=== PATIENT | male | born 1960 | race Caucasian/White ===

== ENCOUNTER 2018-10-07 05:40 | Observation (INO) | payer OTHER ==
--- NOTE | 2018-10-01 16:41 | NUR ---
PATIENT HERE TODAY FOR PREADMISSION APPOINTMENT. HE IS SCHEDULED ON 10/07/18 TO HAVE A LEFT TOTAL KNEE ARTHROPLASTY. 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 HE HAS 5 STEPS INTO THE HOME AND NO STEPS ON THE MAIN PORTION OF THE HOME. HE DOES HAVE A BASEMENT BUT WILL NOT NEED TO BE DOWN THERE FOR A WHILE. [place] AND WOULD LIKE PHYSICAL THERAPY DONE AT [facility]. HE HAS BEEN IN CONTACT WITH THEM RECENTLY. HE WILL BE DRIVING HIMSELF HERE ON DAY OF PROCEDURE BUT HIS OR SON WILL TRANSPORT HIM HOME ON DISCHARGE.
[~2018-10-07] VITALS: Ht 185.4 cm; Wt 122.5 kg
[~2018-10-07 05:40] MED LIST: AMBIEN5 MG PO; CHANTIX1 MG PO; FENOFIBRATE145 MG PO; HYDROCODON-ACE1 EA11 PO; OMEPRAZOLE20 MG PO; OXYCODONE HCL5 MG PO; SLEEP AID50 MG PO; TESTOSTERO200 MG/1 M IM
--- NOTE | 2018-10-07 09:22 | NUR ---
MECHELLE CHOUDHURY REQUESTED I NOT DISTURB PT AT THIS TIME. WILL FOLLOW NEEDED
--- NOTE | 2018-10-07 10:29 | NUR ---
10/07/18 Fabiola9 Diann Gauthier 1008- PT ARRIVES TO PACU NONAROUSABLE TO NOXIOUS STIMULI. PT HAS AN OPA IN PLACE. OXYGEN SAT HIGH 90'S ON 6L VIA MASK. RESP EVEN AND UNLABORED. 1011- PT IS MORE AROUSABLE TO PUSHING THE OPA OUT WITH HIS TONGUE. OPA REMOVED. PT FALLS INSTANTLY BACK TO SLEEP AND STARTS SNORING. JAW THRUST PERFORMED AND SNORING CLEARED. MECHELLE BARON COMPLETING JAW THRUST. 1015- JAW THRUST STOPPED AND PT'S HEAD REPOSITIONED TO CLEAR SNORING WHEN SLEEPING.
--- NOTE | 2018-10-07 11:36 | OR ---
[facility] [address], [place] [address] Signed DATE OF OPERATION: 10/07/2018 SURGEON: Tigre Erickson MD PREOPERATIVE DIAGNOSIS: Degenerative joint disease, left knee. POSTOPERATIVE DIAGNOSIS: Degenerative joint disease, left knee. PROCEDURE PERFORMED: Left total knee arthroplasty with computer navigation. DIAMOND MOUNTER: MELA Tna. Altagracia was present and critical for positioning, retraction, wound closure, and dressing application. ANESTHESIA: Spinal with adductor canal block. TOURNIQUET TIME: 85 minutes. IMPLANTS: [place] Triathlon size 8, femur 7, tibia 11 mm insert, and a 38 mm patella. BRIEF HISTORY: Jigar is a 57-year-old gentleman with severe osteoarthritis and had about a 10-degree of flexion and contracture. Risks and benefits of operative treatment were discussed with him and he elected to proceed. DESCRIPTION OF PROCEDURE: Once consent was obtained, he was taken to the operating room. After adequate anesthesia, he was placed on operating room table. All downside pressure points well padded. The leg was placed in well-padded proximal thigh tourniquet and placed on a hip bump. Leg was prepped and draped in the standard sterile fashion and exsanguinated using Esmarch bandage. Tourniquet inflated 250 mmHg. Standard anterior approach was taken through skin and subcutaneous tissue. Median parapatellar arthrotomy was performed. The infrapatellar fat pad was excised and the medial capsule and very anterior fibers of the MCL were elevated around the posteromedial corner. The ACL was Electronically Signed By: TIGRE ERICKSON MD 10/07/18 1136 PATIENT NAME: JIGAR HDZ OPERATIVE REPORT DATE OF : 58 REPORT #: [id number] PHYSICIAN: TIGRE ERICKSON MD PCP: Sen Ordonez DO REPORT IS CONFIDENTIAL AND NOT TO BE RELEASED WITHOUT AUTHORIZATION [facility] [address], [place] [address] Signed transected. The PCL was left intact and was fine. The medial and lateral menisci were transected anteriorly. The knee was then flexed. The knee was quite tight anteriorly, so we put him back into extension and went ahead and cut the patella with the reciprocating saw. This allowed better mobilization laterally. The knee was then flexed and the navigation guide was pinned to the distal femur and the femur was registered with the computer. The cutting block was then pinned in neutral alignment and the distal femoral cut was made with care taken to protect the surrounding tissues. The bone remnants were excised as were the osteophytes. Attention was then turned to the [id number] cutting block. The femur was sized to an 8. The 8 cutting block was pinned in line with the epicondylar axis. The anterior, posterior, and chamfer cuts were made. Again, all bone piece was removed. There were extensive posterior osteophytes on both the femur and the tibia. The navigation guide was then pinned to the top of the tibia and the tibia was registered with the computer. The cutting block was again pinned in anatomic alignment and set to take 4 mm off the medial side. The cut was made with care taken to protect the patellar tendon and the MCL. The bone was excised as were posterior osteophytes off the tibia. The posterior osteophytes off the femur removed. An extensive soft tissue release was done and quite a bit of bone was removed posteriorly on both the medial and lateral sides. Once this was accomplished, flexion and extension gaps were sized found to be symmetric at 11 mm. The trials were positioned. Knee was taken through range of motion. He reached full extension and 125 degrees of flexion. The patella was sized and drilled for a 38 mm patella. Once this was completed, the distal femoral drill holes were made. The keel punch was used to finish the tibia. The trial was removed. The bone surfaces were packed with a dry Ray-Ron and pulse lavaged. The cement was mixed and reached to proper consistency. We placed all implants on bone surfaces. Tibia was impacted into position first followed by the polyethylene and all excess cement was removed. The femur was impacted into position next and again any excess was removed. The knee was extended and nicely loaded. The patella was clamped into position, any remaining overflow was removed. The cement was allowed to harden for 13 minutes and then the knee was flexed and the remaining overflow was removed using osteotomes. The knee was pulse lavaged at intervals throughout the procedure. A total of 3 L antibiotic irrigation was used. At the end of the procedure, we percutaneously placed an On-Q pain pump in the adductor canal from inside the knee. The synovium superomedially was dissected and digital dissection was taken into the adductor canal. The catheter was introduced using a blunt pituitary rongeur. Once this was accomplished, the knee was closed using #2 Stratafix and #0 Stratafix. The skin was closed using Super Glue mesh. Stressed with a REID wound VAC dressing and taken to recovery room. All sponge, needle, and instrument counts were correct. Electronically Signed By: TIGRE ERICKSON MD 10/07/18 1136 PATIENT NAME: JIGAR HDZ OPERATIVE REPORT DATE OF : 58 REPORT #: [id number] PHYSICIAN: TIGRE ERICKSON MD PCP: Sen Ordonez DO REPORT IS CONFIDENTIAL AND NOT TO BE RELEASED WITHOUT AUTHORIZATION [address] [place], [place] [address] Signed Tigre Erickson MD BA/BYRONL /[id number] Copies: ~ Electronically Signed By: TIGRE ERICKSON MD 10/07/18 1136 PATIENT NAME: JIGAR HDZ OPERATIVE REPORT DATE OF : 58 REPORT #: [id number] PHYSICIAN: TIGRE ERICKSON MD PCP: Sen Ordonez DO REPORT IS CONFIDENTIAL AND NOT TO BE RELEASED WITHOUT AUTHORIZATION
--- NOTE | 2018-10-07 12:53 | NUR ---
PT VERY DROWSY, SLEEPING UPON THIS RN ENTERING ROOM. AWOKE TO VOICE AND GENTLE TOUCH. PT STATING HE WAS HAVING A STRANGE DREAM. VS OBTAINED. PT HARSH CLEAR LIQUID TRAY. DENIES PAIN OR OTHER CONCERNS. LEFT KNEE DRESSING REMAINS CDI. CALL LIGHT WITHIN REACH.
--- NOTE | 2018-10-07 13:39 | NUR ---
ASSISTED RN ZA SHE PUSHED PT TO M/S RM FROM PACU. PT WAS AWAKE, SEEMINGLY IN GOOD SPIRITS. CHECKED BY JUST A FEW MOMENTS LATER, AND PT WAS ASLEEP. WILL CONTINUE TO FOLLOW
--- NOTE | 2018-10-07 16:48 | NUR ---
PT STATES HE IS PICKING UP A WALKER FROM [facility]ON DC FROM HERE AND WANTS TO DO HIS THERAPY AT [facility] IN [place].
--- NOTE | 2018-10-07 17:12 | NUR ---
Medications reconciled by pharmacist using pharmacy records and patient interview
--- NOTE | 2018-10-07 19:11 | NUR ---
RECEIVED REPORT FROM MECHELLE CHINCHILLA. pt RESTING WITH EYES CLOSED, RESPIRATIONS REGULAR. WHITEBOARD UPDATED. CRYOCUFF ON. SCDS AND TYREE HOSE ON. CALL LIGHT WITHIN REACH.
--- NOTE | 2018-10-07 20:37 | NUR ---
ROUNDED CHARGE. VITALS TAKEN AND RECORDED. CRYO REFILLED WITH ICE. CHRISTINE RN IN ROOM. PATIENT HAS NOT VOIDED IN THE LAST 4 HOURS. EDUCATED PATIENT ON THE NEED TO DRINK AND VOID BY 10 PM AND THE WE WOULD BLADDER SCAN HIM. PATIENT VERBALIZED UNDERSTANDING. PATIENT DENIES ANY COMMENTS, QUESTIONS OR CONCERNS. NO NEEDS NOTED. CALL LIGHTIN REACH.
--- NOTE | 2018-10-07 20:48 | NUR ---
ASSESSMENT AND MEDICATIONS DUE. pt RESTING WITH EYES CLOSED, EASILY ROUSED. REPORTED 1/10 PAIN WHEN RESTING. REID HAS GREEN LIGHT, DRESSING C/D/I, NO SHADOWING. PATO WRAP. CRYOCUFF REFRESHED. TYREE FLORES, SCDS, AND HEEL PROTECTORS ON. ASSESSMENT DONE. MEDICATIONS GIVEN (SEE MAR). CALL LIGHT AND POSSESSIONS WITHIN REACH. NO FURTHER REQUESTS AT THIS TIME.
--- NOTE | 2018-10-07 21:55 | NUR ---
THIS RN PROVIDED PATIENT FRESH ICE WATER PER PATIENT REQUEST. ASSISTED PATIENT TO RESTROOM 1PA WITH FWW AND AMBULATED X1 LAP IN HALLWAY, PATIENT TOLERATED WELL. PATIENT SAFELY BACK IN BED WITH TYREE HOSE, HEEL PROTECTORS ON, SCDs IN PLACE AND ON, CRYOCUFF IN PLACE, AND CPOX. PRIMARY NURSE IN ROOM WITH PATIENT. CALL LIGHT WITHIN REACH. NO MORE NEEDS AT THIS TIME.
--- NOTE | 2018-10-07 22:47 | NUR ---
CALL LIGHT ON. pt REQUESTED PAIN MEDICATION FOR 4/10 PAIN. PRN MEDICATION GIVEN. PUDDING AND JELLO PROVIDED. WATER REFRESHED. CALL LIGHT WITHIN REACH.
--- NOTE | 2018-10-07 23:36 | NUR ---
REFILLED PATIENTS ICE WATER PER REQUEST. PATIENT IS RESING IN BED WATCHING TV. PATIENT DENIES ANY FUTHER NEEDS. CALL LIGHT IN REACH.
--- NOTE | 2018-10-08 00:15 | NUR ---
MEDICATION GIVEN (SEE MAR). pt AWAKE IN BED WATCHING. TV. CRYOCUFF, TYREE HOSE, SCDS, AND HEEL PROTECTORS ON. CALL LIGHT WITHIN REACH.
--- NOTE | 2018-10-08 00:44 | NUR ---
CALL LIGHT ON. ASSISTED TO TOILET, 1PA, FWW. REFRESHED WATER. IN BED WITH CRYOCUFF, SCDS, TYREE HOSE, AND HEEL PROTECTORS. REID C/D/I. CALL LIGHT WITHIN REACH.
--- NOTE | 2018-10-08 02:10 | NUR ---
VITALS TAKEN AND RECORDED. INTAKE AND OUPUT RECORDED. CRYO REFILLED WITH ICE. CHRISTINE MIN IN ROOM.
--- NOTE | 2018-10-08 02:11 | NUR ---
FOUND pt RESTING ON HIS SIDE. WHEN AROUSED pt IMMEDIATELY CORRECTED POSITION AND VERBALIZED UNDERSTANDING HE NEEDS TO SLEEP ON HIS BACK. EDUCATED ON POSITION REQUIREMENTS. ASSESSMENT DONE. REID DRESSING C/D/I. CRYOCUFF REFRESHED AND IN PLACE. TYREE FLORES, DORONS, HEEL PROTECTORS ON. CALL LIGHT WITHIN REACH. NO REQUESTS AT THIS TIME.
--- NOTE | 2018-10-08 02:55 | NUR ---
ROUNDED ON pt. RESTING WITH EYES CLOSED, RESPIRATIONS REGULAR, RATE = 16. ON BACK. CALL LIGHT WITHIN REACH.
--- NOTE | 2018-10-08 03:51 | NUR ---
CALL LIGHT ON. ASSISTED TO TOILET AND BACK TO BED. CRYOCUFF, SCDS, TYREE HOSE, HEEL PROTECTORS ON. CALL LIGHT WITHIN REACH. LAYING ON BACK.
--- NOTE | 2018-10-08 04:35 | NUR ---
CALL LIGHT ON. pt REPORTING 4/10 PAIN AT REST. PRN MEDICATION GIVEN (SEE MAR). WATER REFRESHED. CALL LIGHT WITHIN REACH.
--- NOTE | 2018-10-08 05:41 | NUR ---
pt RESTED ON AND OFF DURING SHIFT. REQUIRED PRN PAIN MEDS X2. VOIDING QS. AMBULATED AROUND [place] X1, 1PA, FWW. IV SL, IV ABX. TOLERATING REGULAR DIET. CMS INTACT. ROOM AIR, CPOX. REID DRESSING, NO DRAINAGE NOTED, OKAY LIGHT BLINKING, C/D/I. ON-Q PUMP. CRYOCUFF, TYREE HOSE, SCDS, AND HEEL PROTECTORS ON. USES CALL LIGHT APPROPRIATELY.
--- NOTE | 2018-10-08 05:59 | NUR ---
VITLAS SIGNS TAKEN AND RECORDED. INTAKE AND OUPUT RECORDED. CRYO REFILLED WITH ICE. CHRISTINE MIN IN ROOM.
--- NOTE | 2018-10-08 06:09 | NUR ---
ASSESSMENT AND MEDICATION DUE. ASSESSMENT DONE. pt AWAKE WATCHING TV. DRAINAGE THE SIZE OF A QUARTER NOTED ON REID DRESSING, C/D/I. ON-Q IN PLACE. PATO WRAP, CRYOCUFF, TYREE HOSE, SCDS, AND HEEL PROTECTORS IN PLACE. VSS. MEDICATION GIVEN (SEE MAR). WATER REFRESHED, APPLESAUCE PROVIDED. CALL LIGHT WITHIN REACH.
[2018-10-08] MEDS ORDERED: SENNA LAX8.6 MG PO (07:55)
[2018-10-08] MEDS ORDERED: XARELTO10 MG PO (07:55)
[2018-10-08] MEDS ORDERED: GABAPENTIN600 MG PO (07:55)
[2018-10-08] MEDS ORDERED: OXYCODONE HCL5 MG PO (07:55)
[2018-10-08] MEDS ORDERED: MAPAP500 M1 PO (07:55)
[2018-10-08] MEDS ORDERED: MIRALAX17 GM PO (07:55)
--- NOTE | 2018-10-08 08:11 | NUR ---
PT SITTING UPRIGHT IN BED EATING BREAKFAST. PT DENIES PAIN WHEN SITTING STILL, MOVEMENT MAYBE A 5\10. DRESSING INTACT. GREEN LIGHT ON REID. PT ASSISTED TO BATHROOM FOR BM.
--- NOTE | 2018-10-08 08:50 | NUR ---
ADMINISTERED OXY FOR INFORMATION TECHNOLOGY PROFESSOR AND AB PER SCHEDULE. PT TOLERATED WELL AND IS LOOKING FORWARD TO GOING HOME.
--- NOTE | 2018-10-08 09:56 | NUR ---
PT WORKED WITH TUBE LASER OPERATOR AND UPON RETURNING TO ROOM NOTICED AN INCREASED AMOUNT OF BLOODY DRAINAGE ON REID DRESSING. STILL WITHIN THE CONFINES OF THE ABSORBANT PAD. PT RATES PAIN 4\10 AND WAS DECENT WHEN DOING THERAPY. FARHAN STATES THAT HE DID QUITE WELL AND SHE WILL WORK WITH HIM AGAIN AT 1300. WILL CONTINUE TO MONITOR
--- NOTE | 2018-10-08 11:10 | NUR ---
PT WAS IN BED, WATCHING TV. HE IS ALERT AND ORIENTED. PT HOPES TO BE DC'D LATER TODAY AFTER PM P.T. PAIN UNDER CONTROL, HAS P.T. SET UP IN [place]. HAD PLEASANT VISIT, EXTENDED A BLESSING, WILL FOLLOW NEEDED
--- NOTE | 2018-10-08 11:17 | NUR ---
CALLED DR WESTFALL TO INFORM OF INCREASING DRAINAGE AND PT HAVING THROBBING IN KNEE. HE SAID TO TURN THE ON-Q PUMP FROM 8 UP TO 10 AND CONTINUE TO MONITOR THE BLEEDING. PT INFORMED OF THIS AND PUMP TURNED UP. STATES HE WOULD LIKE THE OXY BEFORE AUTOMATIC PACKER OPERATOR THIS AFTERNOON.
--- NOTE | 2018-10-08 13:05 | NUR ---
PT SITTING IN BED WAITING FOR RESIDENTIAL MONITOR. TOLD PT NOT TO BED THE KNEE MUCH IN THERAPY THIS AFTERNOON. ALSO TOLD FARHAN PT. DRAINAGE IS NOW LEAKED SLIGHTLY OFF OF ABSORBANT PAD BUT THE SEAL ON DRESSING STILL INTACT.
--- NOTE | 2018-10-08 14:40 | NUR ---
PATIENT SITTING UP IN BED EATING AND WATCHING TV. FRESH WATER GIVEN. CALL LIGHT IN REACH. NO FURTHER NEEDS AT THIS TIME.
--- NOTE | 2018-10-08 14:43 | NUR ---
PT WORKED WITH COLD WORKING SUPERVISOR FOR SECOND TIME. PT HAD INCREASED DRAINAGE BUT FEELS PAIN IS ADEQUETLY CONTROLLED. CALLED MALOU. HE SAID TO CHANGE THE REID DRESSING TO THE SPARE AND REINFORCE ON TOP WITH ABD THEN PATO WRAP. FOLLOW UP WITH MALOU ON SUNDAY FOR DRESSING CHANGE. CHANGED THE DRESSING WNL. HAS A BRUISE FORMING AT BASE OF INCISION AND IS LEAKING FROM THAT SPOT. IMMEDIATELY SATURATED BOTTOM OF NEW DRESSING BUT HAS NOT SPREAD SINCE PLACED 1\2 HOUR AGO. ADMINISTERED SCHEDULED PAIN MEDS. PT CALLED FAMILY TO COME GET HIM. DR WESTFALL OK'D GOING HOME
--- NOTE | 2018-10-08 15:58 | NUR ---
PROVIDED PATIENT WITH DISCHARGE INSTRUCTIONS, DISCUSSED HOME CARE. IV REMOVED, CATH INTACT. NOTED REID DRSG BLOODY, ABD REINFORCING W/ PATO WRAP CLEAN, DRY AND INTACT. PATIENT VERBALIZED UNDERSTANDING OF CONCERNS OF BLEEDING, AND WILL LIMIT ACTIVITY AT HOME, BY NOT BENDING >30 DEGREES. STRONG PEDAL PULSE. PLAN FOR PATIENT TO HAVE DRSG CHANGED ON SUNDAY MORNING AT DR. WESTFALL OFFICE.
== END 2018-10-08 16:37 | disposition home or self-care (01) ==
LOC: MS 05:40 → DSVR 05:40 → DS 05:40 → DSVR 05:40 → EDSTATUS 06:45 → MS 06:45 → DS 08:17 → MS 08:18 → DSVR 11:05 → MS 11:05
PROVIDERS: ADMIT Specialist
PROC: 8E0YXBZ Computer Assisted Procedure of Lower Extremity (ICD-10-PCS; 2018-10-07)
PROC: 3E0T3BZ Introduction of Anesthetic Agent into Peripheral Nerves and Plexi, Percutaneous Approach (ICD-10-PCS; 2018-10-07)
PROC: 0SRD0J9 Replacement of Left Knee Joint with Synthetic Substitute, Cemented, Open Approach (ICD-10-PCS; principal; 2018-10-07 06:45)
DX: M17.12 Unilateral primary osteoarthritis, left knee (principal); G89.18 Other acute postprocedural pain; F17.200 Nicotine dependence, unspecified, uncomplicated; K21.9 Gastro-esophageal reflux disease without esophagitis; E66.01 Morbid (severe) obesity due to excess calories; G47.33 Obstructive sleep apnea (adult) (pediatric); Z79.899 Other long term (current) drug therapy; Z96.651 Presence of right artificial knee joint; Z68.35 Body mass index [BMI] 35.0-35.9, adult
CPT/HCPCS: 01402; 36415; 64447; 76942; 80048; 85025; 94762; 96374; 96375; 96376; 97110; 97116; 97161; C1713; C1776; G0378; J0690; J0735; J1100; J1885; J2250; J2405; J2704; J2765; J2795; J3010; J7120

== ENCOUNTER 2018-10-15 16:49 | Observation (INO) | payer OTHER ==
[~2018-10-15] VITALS: Ht 185.4 cm; Wt 127.6 kg
[~2018-10-15 16:49] MED LIST changes: +GABAPENTIN600 MG PO; +MAPAP500 M1 PO; +MIRALAX17 GM PO; +SENNA LAX8.6 MG PO; +XARELTO10 MG PO
--- NOTE | 2018-10-15 18:41 | NUR ---
NEW DIRECT ADMIT. LAC IV S/L. LEFT LEG ELEVATED. STRICT BEDREST. BEDPAN/URINAL. BED ALARM. REGULAR DIET. ALERT AND ORIENTED.
--- NOTE | 2018-10-15 18:51 | NUR ---
CALLED DR WESTFALL TO UPDATE ON ULTRASOUND RESULTS. NEGATIVE FOR DVT. TYREE HOSE ON AT ALL TIMES. HE WILL BE IN TOMORROW TO APPLY A PRESSURE DRESSING. KEEP LEFT LEG ELEVATED.
--- NOTE | 2018-10-15 20:09 | NUR ---
PATIENT RESTING QUIETLY IN BED AND IS WATCHING TV. LLE EXTREMITY ELEVATED ON PILLOWS, PATIENT RESQUESTED PILLOWS FOR RLE AND THESE WERE PROVIDED.
--- NOTE | 2018-10-15 22:00 | NUR ---
PATIENT RESTING QUIETLY, RESPIRATIONS REGULAR AND EVEN AT A RATE OF 18, EYES CLOSED AND PATIENT HAS NO S/S OF DISTRESS.
--- NOTE | 2018-10-16 00:10 | NUR ---
PATIENT STATUS UNCHANGED, RESTING QUIETLY, EYES CLOSED RESPIRATIONS 18, LEGS ELEVATED.
--- NOTE | 2018-10-16 00:20 | NUR ---
IV ANTIBIOTIC HUNG, PATIENT STILL RESTING BEFORE.
--- NOTE | 2018-10-16 01:02 | NUR ---
PATIENT CALLED, PATIENT VOIDED PER URINAL, PILLOWS REPOSITIONED UNDER LEGS. LLE PAIN 710. PATIENT GIVEN 10MG OXYCODONE PO.
--- NOTE | 2018-10-16 02:59 | NUR ---
PATIENT'S PILLOWS READJUSTED UNDER HIS LEGS. ASSESSMENT DONE. PATIENT SAYS HE HAS BEEN SLEEPING WELL AND IS NOT CURRENTLY HAVING PAIN.
--- NOTE | 2018-10-16 05:20 | NUR ---
PATIENT CALLED AND WOKE UP WITH 7/10 LLE PAIN. 2 X 5MG PO OXYCODONE GIVEN, AND LEGS READJUSTED AND PROPPED ON PILLOWS. WATER GLASS FILLED.
--- NOTE | 2018-10-16 06:39 | NUR ---
PATIENT JUST GIVEN A 3RD 5MG OXYCODONE FOR 710 LLE PAIN. PATIENT GOT ANOTHER GLASSS OF WATER, AND HIS PHONE IS NOW CHARGING, AND I TRIED TO FIX HIS TV, BUT THE TV IS ON THE RIOS DUE TO THE STORM. PATIENT HAS HAD DECENT PAIN CONTROL THROUGH THE NIGHT WITH HIS OXYCODONE AND HE SAYS THAT HE HAS SLEPT VERY WELL. LLE DRESSING IS INTACT AND LEGS HAVE BEEN KEPT ELEVATED ON PILLOWS. IV FLUSHES WELL.
--- NOTE | 2018-10-16 07:56 | NUR ---
BEDSIDE REPORT RECEIVED FROM GAYE MIN. PATIENT AWAKENED TO SOUND. WHITE BOARD UPDATED. LEFT KNEE ELEVATED ON [address] PL[address]. CALL LIGHT WITHIN REACH. ON STRICT BEDREST NOW. SALINE LOCKED. EXPECT DR WESTFALL TODAY TO CREATE PRESSURE DRESSING FOR LEFT LEG. DRESSING COVERING INCISION ON LEFT KNEE. OXYCODONE ADMINISTERED FOR PAIN OVERNIGHT.
--- NOTE | 2018-10-16 08:08 | NUR ---
PATIENT SITTING UP IN BED, CALL LIGHT IN REACH. PATIENT WASHED HANDS AND FACE WITH WARM WASH CLOTH AND IS SITTING UP WAITING FOR BREAKFAST. NO OTHER NEEDS AT THIS TIME.
[2018-10-16] MEDS ORDERED: NEURONTIN300 MG PO (10:13)
[2018-10-16] MEDS ORDERED: BACTRIM DS TAB1 EACH PO (10:14)
--- NOTE | 2018-10-16 10:17 | NUR ---
PATIENT VOIDED LETITIA/ORANGE COLORED URINE, RN NOTIFIED. PATIENT RESTING IN BED, CALL LIGHT IN REACH. PATIENT REFUSED BED BATH. NO OTHER NEEDS AT THIS TIME.
--- NOTE | 2018-10-16 12:24 | NUR ---
pt eating lunch in bed. student nurse emptied urinal for patient.
--- NOTE | 2018-10-16 13:28 | NUR ---
PATIENT SITTING UP IN BED, CALL LIGHT IN REACH. LEG ELEVATED. NO OTHER NEEDS AT THIS TIME.
--- NOTE | 2018-10-16 14:42 | NUR ---
PATIENT RESTING BACK IN BED, STRONG PEDAL PULSE. DORINDA PROVIDED REPORT, THIS NURSE TO RESUME CARE. PATIENT CONTINUES TO WAIT FOR RIDE TO COME FROM HOME. NO COMPLAINTS OF PAIN AT THIS TIME. VOIDING WELL. CALL LIGHT WITHIN REACH.
--- NOTE | 2018-10-16 15:40 | NUR ---
PT EXPECTING TO RETURN HOME UPON DC AND WHEN DR WESTFALL WILL LET HIM HE IS PLANNING ON RESUMING PT WITH [facility] IN [place].
--- NOTE | 2018-10-16 16:05 | NUR ---
PRESSURE DRESSING C/D/I, STRONG PEDAL PULSES. PAIN WELL CONTROLLED. PROVIDED DC INSTRUCTIONS. ANSWERED QUESTIONS AND CONCERNS.
== END 2018-10-16 16:10 | disposition home or self-care (01) ==
LOC: MS 16:49
PROVIDERS: ADMIT Specialist
DX: R60.0 Localized edema (principal); Z96.652 Presence of left artificial knee joint; G47.33 Obstructive sleep apnea (adult) (pediatric); E78.5 Hyperlipidemia, unspecified; K21.9 Gastro-esophageal reflux disease without esophagitis; F51.04 Psychophysiologic insomnia; G89.4 Chronic pain syndrome; Z79.899 Other long term (current) drug therapy; Z87.891 Personal history of nicotine dependence; Z79.01 Long term (current) use of anticoagulants; Z79.891 Long term (current) use of opiate analgesic
CPT/HCPCS: 36415; 80053; 85025; 85240; 85244; 85245; 85610; 85730; 93971; 96374; 96376; G0378; G0379; J0690